=== PATIENT | male | born 1985 | race Caucasian/White ===

== ENCOUNTER 2021-06-02 08:33 | Emergency (ER) | payer BC, OTHER ==
[~2021-06-02] VITALS: Ht 193 cm; Wt 136.1 kg
[2021-06-02] MEDS ORDERED: IBUP-1955 PO (09:07)
--- NOTE | 2021-06-02 09:13 | NUR ---
Patient discharged to home in stable condition. Written and verbal after care instructions given. Patient verbalizes understanding of instructions. Stressed follow up or return to ER for worsening s/s.
== END 2021-06-02 09:13 | disposition home or self-care (01) ==
LOC: ER 08:33
DX: M25.511 Pain in right shoulder (principal); Z91.81 History of falling
CPT/HCPCS: 73030; A4663